=== PATIENT | female | born 1990 | race Two or more races ===

== ENCOUNTER 2017-11-28 05:48 | Day surgery (SDC) | payer OTHER ==
[2017-11-28] MEDS ORDERED: MIDAZOLAM 1 MG/ML 2 ML INJ (08:10)
[2017-11-28] MEDS ORDERED: FENTAnyl 50 MCG/ML VIAL (08:10)
== END 2017-11-28 12:10 | disposition home or self-care (01) ==
LOC: GIL 05:48
DX: K21.9 Gastro-esophageal reflux disease without esophagitis (principal); K29.70 Gastritis, unspecified, without bleeding
CPT/HCPCS: 43239; 88305; 88312